=== PATIENT | female | born 1950 | race Caucasian/White ===

== ENCOUNTER 2025-03-25 16:39 | Observation (INO) ==
[2025-03-25 17:13] LABS: Hematocrit (blood only) 44.9 % (37.0-47.0); Hemoglobin 15.3 g/dl (12.0-16.0); Immature Granulocytes # (auto) 0.05 K/uL (0.01-0.20); Immature Granulocytes % (auto) 0.4 %; Mean Corpuscular Hemoglobin 29.7 pg (25.0-34.0); Mean Corpuscular Volume 87.0 fL (80.0-100.0); Platelet Count 274 K/uL (130-400); RDW Standard Deviation 40.6 fL (36.4-46.3); Red Blood Count 5.16 M/uL (4.20-5.40); White Blood Count 12.18 K/ul (4.8-10.8)
[2025-03-25 17:36] LABS: Alanine Aminotransferase 17.0 U/L (7-52); Albumin Globulin Ratio 1.2 (0.9-2); Alkaline Phosphatase 79.0 U/L (34-104); Anion Gap 10.0 (3-11); Bilirubin,Total 0.6 mg/dl (0.2-1.0); Blood Urea Nitrogen 10.0 mg/dl (6-23); Calcium 9.1 mg/dl (8.6-10.3); Carbon Dioxide 24.0 mmol/L (21-32); Chloride 104.0 mmol/L (98-107); Creatinine Clr Calc Pharmacy 51.7 ml/min; Globulin 3.3 gm/dl (2.5-4.0); Glucose 253.0 mg/dl (70-99(Fasting)); Potassium 3.0 mmol/L (3.5-5.1); Sodium 138.0 mmol/L (136-145); Total Protein 7.2 gm/dl (6.0-8.3)
--- NOTE | 2025-03-25 18:34 | Emergency Department Note ---
Impression & Plan Acute neck pain, Abnormal MRI, cervical spine, Leukocytosis, Inflammation of cervical spine region ED Provider Note NAME: SAMANTHA BACON AGE: 74 SEX: Female INFORMANT: Patient ED PROVIDER(S): Reuben Abel MD CHIEF COMPLAINT: Neck pain PLAN: Disposition: Admitted Outpatient prescription management: none Referral: None MEDICAL DECISION MAKING: Patient presented because of atraumatic neck pain. She had no historical points or additional findings on physical examination other than neck stiffness. Patient did not have any headache. IV was established and blood work was obtained. Patient was treated with IV Dilaudid. She did require multiple doses. Her white blood cell count was elevated to 12,000. Patient did have an elevation in ESR and CRP. Chemistries were unremarkable otherwise except for mildly low potassium. Potassium was repleted.. Patient's procalcitonin was normal. Patient underwent CT imaging with contrast and no acute abnormality was appreciated. No abscess is seen. Patient and I discussed MR imaging given the symptoms and findings. MR imaging was performed. There was some delay due to radiology backlog. MR imaging revealed no evidence of abscess however moderate prevertebral soft tissue swelling/fluid extending from the basion to T2. There is moderate edema in the paraspinous muscles. Consultation was placed with orthospine however I was unable to reach anyone here and I did contact [place] [facility]. Discussed the case and reviewed the findings with Dr. Fierro. He noted no need for surgical intervention or transfer. [place] that medicine admission was reasonable. Discussed blood cultures and antibiotics which he thought was reasonable. He did recommend muscle enzymes and a creatine kinase was added. Discussed with patient and she was amenable for admission. IV Zosyn and daptomycin ordered after blood cultures. Consultation was made with the [facility] hospitalist service, Dr. Rob. Patient was evaluated in the ER and admitted for further management. Care/management discussed with: training development manager, hospitalist, neurosurgery Level of care consideration(s): After review of the information above and other included data, I feel the patient requires escalation of care to admission Triage Nursing notes: reviewed and agree them. Vital Signs: reviewed and remarkable for mild hypertension Additional History obtained from: none Chronic Medical/Social Conditions affecting care: none Prior/ Outside/ External records reviewed: none Differential Diagnosis: Cervical strain, fracture, cervical disc disease, lymphadenitis, meningitis, tumor, arterial dissection, thyroiditis, parotitis, mastoiditis, neurologic, cardiovascular, as well as other pathologies. Diagnostics, independently interpreted by me: ECG: none Cardiac Monitoring: Cardiac monitoring ordered by me: The patient was placed on continuous cardiac monitoring and observed. It revealed a normal sinus rhythm at 62 beats per minute without ectopy or evidence of dysrhythmia. Medical decision rules: none Imaging studies: CT and MRI as above. Prevertebral soft tissue swelling and paraspinous edema. HPI: 74 year old Female arrives for evaluation of severe neck pain. This started 4 days ago and is worsening. The patient also notes the following associated symptoms, none. Pain radiates to the head, but no headache or flu symptoms. No trauma. The patient has tried OTC meds for relieving factors. Current pain is rated as 10/10. No prior neck problems Pt denies LOC, headache, fevers, chills, diaphoresis, visual changes, swallowing problems, chest pain, breathing difficulties, nausea, vomiting, abdominal pain, back pain, melena, hematochezia, urinary symptoms, numbness, weakness, lymphadenopathy, rash, or other complaints. PAST MEDICAL HISTORY: See Below, HTN PAST SURGICAL HISTORY: See Below, SOCIAL HISTORY: See Below, HOME MEDICATIONS: See Below ALLERGIES: See Below VITALS: See Below PHYSICAL EXAMINATION: GENERAL: Awake, alert, uncomfortable-appearing, in no distress HENT: Normocephalic, atraumatic. Oropharynx unremarkable. EYES: Normal conjunctiva. Sclera non-icteric. NECK: Inspection normal. Bilateral paraspinal-tender. Stiff, with limited ROM. No masses. RESPIRATORY: Clear to auscultation. No wheezes. No rales. Normal respiratory effort. CARDIAC: Normal rate. Normal rhythm. No murmurs. No rubs. Extremities warm and well perfused. Pulses equal. No JVD. GI: Soft, non-distended. No tenderness to palpation. No rebound or guarding. No masses. RECTAL: Deferred. MUSCULOSKELETAL: Atraumatic. Chest examination reveals no tenderness. The back is symmetrical on inspection without obvious abnormality. There is no CVA tenderness to palpation. No joint edema. LOWER EXTREMITIES: Calves are equal size bilaterally and non-tender. No edema. No discoloration. NEURO: Normal sensorium. No sensory or motor deficits noted. SKIN: No rash or jaundice noted. PROCEDURES: none CRITICAL CARE: I have personally spent 40 minutes of critical care time in the direct management of this patient. This includes bedside care, interpretation of diagnostic studies, and testing, discussion with consultants, patient, and family members, and other required patient management activities. These minutes are in excess of all separately billable procedures. OBSERVATION NOTE: none Past Med/Surg History Problem List (Updated 03/26/25 @ 11:52 by Reuben Abel MD) Inflammation of cervical spine region (Acute) Leukocytosis (Acute) Abnormal MRI, cervical spine (Acute) Acute neck pain (Acute) Social History Smoking Status: Never smoker Preferred Language: Armenian Feels Safe at Home: Yes Allergies Allergies Allergy/AdvReac Type Severity Reaction Status Date / Time No Known Allergies Allergy Unverified 03/25/25 19:26 Home Meds Home Medications Medication Instructions Recorded Confirmed amlodipine 5 mg tablet 5 mg PO DAILY 03/25/25 03/25/25 cholecalciferol (vitamin D3) 25 25 mcg PO DAILY 03/25/25 03/25/25 mcg (1,000 unit) tablet (Vitamin D3) famotidine 20 mg tablet 20 mg PO BID 03/25/25 03/25/25 lisinopril 20 mg tablet 20 mg PO DAILY 03/25/25 03/25/25 meloxicam 7.5 mg tablet 7.5 mg PO DAILY 03/25/25 03/25/25 Results & Data (ED) Vital Signs Vital Signs - 24 hr 03/25/25 16:47 03/25/25 18:02 03/25/25 20:00 Temperature 36.7 C Temperature Source Temporal Artery Scan Pulse Rate 95 H Pulse Rate [Left Finger] 82 72 Respiratory Rate 17 18 16 Respiratory Effort / Characteristics Non-Labored Spontaneous Non-Labored Spontaneous Non-Labored Spontaneous Respiratory Depth Normal Normal Normal Respiratory Pattern Regular Regular Regular Blood Pressure 162/82 H Blood Pressure [Left Arm] 173/81 H 180/85 H Blood Pressure Mean 108 Blood Pressure Mean [Left Arm] 111 116 Blood Pressure Position Semi-fowlers Blood Pressure Position [Left Arm] Sitting Sitting Pulse Oximetry 94 96 92 Oxygen Delivery Method Room Air Room Air Room Air Sepsis Recent Fever Within 48 Hours No Sepsis New/Unexplained Change in Mental Status N/A Sepsis Action Taken by Nursing No Action Required 03/25/25 22:15 03/25/25 23:00 03/25/25 23:00 Temperature Temperature Source Pulse Rate Pulse Rate [Left Finger] 81 71 Respiratory Rate 14 18 Respiratory Effort / Characteristics Non-Labored Spontaneous Non-Labored Spontaneous Respiratory Depth Normal Normal Respiratory Pattern Regular Regular Blood Pressure Blood Pressure [Left Arm] 160/77 H 150/80 H Blood Pressure Mean Blood Pressure Mean [Left Arm] 104 103 Blood Pressure Position Blood Pressure Position [Left Arm] Lying Pulse Oximetry 95 97 Oxygen Delivery Method Room Air Room Air Sepsis Recent Fever Within 48 Hours Sepsis New/Unexplained Change in Mental Status Sepsis Action Taken by Nursing 03/26/25 01:00 03/26/25 03:33 Temperature Temperature Source Pulse Rate Pulse Rate [Left Finger] 84 68 Respiratory Rate 18 18 Respiratory Effort / Characteristics Non-Labored Spontaneous Respiratory Depth Normal Respiratory Pattern Regular Blood Pressure Blood Pressure [Left Arm] 152/97 H 148/76 H Blood Pressure Mean Blood Pressure Mean [Left Arm] 115 100 Blood Pressure Position Blood Pressure Position [Left Arm] Lying Lying Pulse Oximetry 96 94 Oxygen Delivery Method Room Air Room Air Sepsis Recent Fever Within 48 Hours Sepsis New/Unexplained Change in Mental Status Sepsis Action Taken by Nursing Laboratory Data 03/25/25 16:55 03/25/25 16:55 Lab Results 03/25/25 03/25/25 Range/Units 16:55 18:35 WBC 12.18 H (4.8-10.8) K/ul RBC 5.16 (4.20-5.40) M/uL Hgb 15.3 (12.0-16.0) g/dl Hct 44.9 (37.0-47.0) % MCV 87.0 (80.0-100.0) fL MCH 29.7 (25.0-34.0) pg MCHC 34.1 (32.0-36.0) g/dL RDW Std Deviation 40.6 (36.4-46.3) fL RDW Coeff of Demetrice 12.8 (11.5-14.5) % Plt Count 274 (130-400) K/uL MPV 9.1 L (9.4-12.4) fL Immature Gran % (Auto) 0.4 % Neut % (Auto) 80.9 % Lymph % (Auto) 10.5 % [place] % (Auto) 8.0 % Eos % (Auto) 0.0 % Baso % (Auto) 0.2 % Neut # (Auto) 9.85 H (1.40-6.50) K/uL Lymph # (Auto) 1.28 (1.20-3.40) K/uL [place] # (Auto) 0.97 H (0.11-0.59) K/uL Eos # (Auto) 0.00 (0.00-0.50) K/uL Baso # (Auto) 0.03 (0.00-0.20) K/uL Immature Gran # (Auto) 0.05 (0.01-0.20) K/uL ESR 34 H (0-30) mm/hr Sodium 138 (136-145) mmol/L Potassium 3.0 L (3.5-5.1) mmol/L Chloride 104 (98-107) mmol/L Carbon Dioxide 24 (21-32) mmol/L Anion Gap 10 (3-11) BUN 10 (6-23) mg/dl Creatinine 0.92 (0.6-1.2) mg/dl Est Cr Clr Drug Dosing 51.7 ml/min eGFR 66.16 BUN/Creatinine Ratio 10.9 (10-20) Glucose 253 H (70-99(Fasting)) mg/dl Calcium 9.1 (8.6-10.3) mg/dl Total Bilirubin 0.6 (0.2-1.0) mg/dl AST 19 (13-39) U/L ALT 17 (7-52) U/L Alkaline Phosphatase 79 (34-104) U/L Total Creatine Kinase 47 (26-192) U/L C-Reactive Protein 7.69 H (0-0.5) mg/dl Total Protein 7.2 (6.0-8.3) gm/dl Albumin 3.9 (3.4-5.0) gm/dl Globulin 3.3 (2.5-4.0) gm/dl Albumin/Globulin Ratio 1.2 (0.9-2) Procalcitonin 0.07 (0-0.5) ng/ml Lyme Disease Screen Negative (Negative) Administered Medications Hydromorphone HCl (Hydromorphone Inj 0.5 Mg/0.5 Ml Syr) 0.5 mg IV Q6H PRN PRN Reason: Severe Pain (Scale 7, 8, 9,10) Stop: 04/09/25 09:56 Last Admin: 03/26/25 11:33 Dose: 0.5 mg Documented By: LIBERTAD Discontinued Medications Gadobutrol (Gadobutrol 65ml Vial) 6 ml IV ONCE ONE Stop: 03/25/25 21:31 Last Admin: 03/25/25 21:31 Dose: 6 ml Documented By: SEMAJ Hydromorphone HCl (Hydromorphone Inj 0.5 Mg/0.5 Ml Syr) 0.25 mg IV Q15M PRN PRN Reason: Pain Stop: 04/08/25 18:33 Last Admin: 03/26/25 03:28 Dose: 0.25 mg Documented By: Admin: 03/25/25 22:20 Dose: 0.25 mg Documented By: Admin: 03/25/25 21:02 Dose: 0.25 mg Documented By: Admin: 03/25/25 18:47 Dose: 0.25 mg Documented By: SAMANTA Potassium Chloride (K Sudhakar / Wtr) 10 meq in 100 mls @ 100 mls/hr IV ONE ONE Stop: 03/25/25 20:04 Last Infusion: 03/25/25 20:58 Dose: Infused Documented By: Admin: 03/25/25 19:26 Dose: 100 mls/hr Documented By: SAMANTA Piperacillin Sod/Tazobactam Sod (Zosyn) 4.5 gm in 100 mls @ 200 mls/hr IV NOW ONE; Protocol Stop: 03/26/25 03:13 Last Infusion: 03/26/25 05:28 Dose: Infused Documented By: Admin: 03/26/25 03:30 Dose: 200 mls/hr Documented By: Daptomycin 425 mg/ Syringe 8.5 mls @ 4.25 mls/min IV NOW ONE; Protocol Stop: 03/26/25 02:58 Last Admin: 03/26/25 05:29 Dose: 4.25 mls/min Documented By: Potassium Chloride (K Sudhakar / Wtr) 10 meq in 100 mls @ 100 mls/hr IV Q1H RITO Stop: 03/26/25 08:14 Last Infusion: 03/26/25 08:20 Dose: Infused Documented By: Admin: 03/26/25 07:18 Dose: 100 mls/hr Documented By: Infusion: 03/26/25 07:18 Dose: Infused Documented By: Admin: 03/26/25 06:18 Dose: 100 mls/hr Documented By: Ioversol (Optiray 320 100ml) 93 ml IV ONCE ONE Stop: 03/25/25 19:00 Last Admin: 03/25/25 18:59 Dose: 93 ml Documented By: JEROMY Ondansetron HCl (Ondansetron Inj 2 Mg/Ml 2 Ml Vial) 4 mg IV NOW STA Stop: 03/25/25 18:35 Last Admin: 03/25/25 18:46 Dose: 4 mg Documented By: SAMANTA Ondansetron HCl (Ondansetron Inj 2 Mg/Ml 2 Ml Vial) 4 mg IV NOW STA Stop: 03/25/25 22:44 Last Admin: 03/25/25 23:01 Dose: 4 mg Documented By: Potassium Chloride (Potassium Chloride Crtab 20 Meq Tabcr) 40 meq PO NOW STA Stop: 03/26/25 06:02 Last Admin: 03/26/25 06:18 Dose: 40 meq Documented By: Imaging Data Radiologist's Impression: Cervical Spine MRI 03/25/25 21:00 Exam(s): MRI C SPINE IV Amt: 6ml gadavist EXAM: MR Cervical Spine With Intravenous Contrast CLINICAL HISTORY: Reason for exam: severe neck pain, elevated WBC, ESR, CRP. TECHNIQUE: Magnetic resonance images of the cervical spine with intravenous contrast in multiple planes. CONTRAST: Patient received 6ml gadavist of IV contrast COMPARISON: Prior CT scan of the cervical spine from March 25, 2025. FINDINGS: This study is limited secondary to motion artifact. Vertebrae: There are 7 cervical type vertebral bodies with a mild generalized curved to the left and straightening normal cervical lordosis. There is a mild grade 1 anterolisthesis of C3 on C4 measuring 2 mm, retrolisthesis of C4 on C5 measuring 2 mm prosthesis of C5 on C6 measuring 2 mm. There is normal vertebral body height. The bone marrow signal is heterogeneous with reactive endplate changes. No acute fracture. Spinal cord: The cord is normal size, shape and signal characteristics. The craniocervical junction is normal without evidence of Chiari malformation. No abnormal enhancement. Soft tissues: There is moderate prevertebral soft tissue swelling/fluid extending from the basion to T2. There is moderate edema in the paraspinous muscles. IMPRESSION: Moderate prevertebral soft tissue swelling/fluid extending from the basion through T2 which may be of infectious, post traumatic or inflammatory etiologies. No definite evidence of osteomyelitis. No evidence of epidural abscess. Electronically signed by: Gina Brennan MD 03/26/25 01:08 AM Discharge Plan Visit Data Chief Complaint: Neck Injury/Pain Stated Complaint: STIFF NECK ED Provider: Reuben Abel Discharge Problem: Acute neck pain, Abnormal MRI, cervical spine, Leukocytosis, Inflammation of cervical spine region Patient Disposition: Admitted As Inpatient Condition: Fair Discharge Instructions Interventions: ED Discharge Assessment Last Done: 03/26/25 10:20
[2025-03-25] MEDS: ONDANSETRON INJ 2 MG/ML 2 ML VIAL IV STA ×2 (18:46→23:01)
[2025-03-25] MEDS: HYDROmorphone INJ 0.5 MG/0.5 ML SYR IV PRN (18:47)
[2025-03-25] MEDS: OPTIRAY 320 100ml IV ONE (18:59)
[2025-03-25 19:10] LABS: Procalcitonin 0.07 ng/ml (0-0.5)
[2025-03-25] MEDS: POTASSIUM CHLORIDE / WTR 10 MEQ/100 ML PLCT IV ONE (19:26)
[2025-03-25 19:35] LABS: Lyme Screen Rflx Confirmation Negative (Negative)
--- NOTE | 2025-03-25 20:18 | CT Scan Report ---
EXAM: CT cervical spine with contrast CLINICAL HISTORY: Severe midline neck pain, elevated white blood cell TECHNIQUE: Contiguous axial images were obtained through the cervical spine without the use of intravenous contrast. Sagittal and coronal reformations are supplied. PRIORS: None FINDINGS: Moderate osseous demineralization noted with lordotic straightening. No acute fracture or facet dislocation. Moderate facet hypertrophic changes at all levels. Allowing for technique, the thyroid enhances normally. No soft tissue edema or paraspinal enhancement. Trachea is patent. Esophagus lumen contains small amount of gas. Vasculature unremarkable. No adenopathy identified. No retropharyngeal abscess or fluid. IMPRESSION: No CT evidence of an acute cervical abnormality. If symptoms persist, MRI could be considered. Electronically signed by Massiel Bermudez 03-25-2025 8:18 PM
[2025-03-25] MEDS: GADOBUTROL 65ML VIAL IV ONE (21:31)
--- NOTE | 2025-03-26 01:09 | Magnetic Resonance Report ---
Exam(s): MRI C SPINE IV Amt: 6ml gadavist EXAM: MR Cervical Spine With Intravenous Contrast CLINICAL HISTORY: Reason for exam: severe neck pain, elevated WBC, ESR, CRP. TECHNIQUE: Magnetic resonance images of the cervical spine with intravenous contrast in multiple planes. CONTRAST: Patient received 6ml gadavist of IV contrast COMPARISON: Prior CT scan of the cervical spine from March 25, 2025. FINDINGS: This study is limited secondary to motion artifact. Vertebrae: There are 7 cervical type vertebral bodies with a mild generalized curved to the left and straightening normal cervical lordosis. There is a mild grade 1 anterolisthesis of C3 on C4 measuring 2 mm, retrolisthesis of C4 on C5 measuring 2 mm prosthesis of C5 on C6 measuring 2 mm. There is normal vertebral body height. The bone marrow signal is heterogeneous with reactive endplate changes. No acute fracture. Spinal cord: The cord is normal size, shape and signal characteristics. The craniocervical junction is normal without evidence of Chiari malformation. No abnormal enhancement. Soft tissues: There is moderate prevertebral soft tissue swelling/fluid extending from the basion to T2. There is moderate edema in the paraspinous muscles. IMPRESSION: Moderate prevertebral soft tissue swelling/fluid extending from the basion through T2 which may be of infectious, post traumatic or inflammatory etiologies. No definite evidence of osteomyelitis. No evidence of epidural abscess. Electronically signed by: Gina Brennan MD 03/26/25 01:08 AM
[2025-03-26 03:18] LABS: Creatine Kinase 47.0 U/L (26-192)
[2025-03-26] MEDS: PIPERACILLIN/TAZOBACTAM 4.5 GM/100 ML BAG IV ONE (03:30)
[2025-03-26] MEDS: DAPTOmycin 425 MG in SYRINGE 0 ML IV ONE (05:29)
--- NOTE | 2025-03-26 06:09 | History & Physical Report ---
Date of Service March 26, 2025 Assessment & Plan (1) Acute neck pain: Plan: 74-year-old female with past medical history significant for hypertension and GERD comes because of severe neck pain and stiffness started since last Saturday. Saturday she was taking her gravel when suddenly noticed neck pain. Did not injure her neck. No fall. And has been very stiff. Denies any fevers. The pain is radiating to head. No blurred visions. No runny nose or sore throat. No cough. No earaches. No chest pain. No difficulty swallowing. No shortness of breath. No nausea. No abdominal pain. Normal bowel and bladder movements. Ambulation okay. Denies any weakness in the upper extremities. In the ER a cervical MRI scan showed moderate perivertebral soft tissue swelling/fluid extending from the basion throughT2 which could be infectious, posttraumatic or inflammatory etiologies. No definitive evidence of osteomyelitis. No evidence of epidural abscess. ER talked with neurosurgery at [facility] who recommended medical management and no intervention planned. Received Zosyn and Dapto in the ER so far. Received pain medication . Patient currently able to move the neck somewhat better but still stiff. Hemodynamics are okay. Acute neck pain And stiffness Started last Saturday. No injuries. No fevers. Cervical CT scan was okay Cervical MRI scan with IV contrast showed moderate perivertebral soft tissue swelling/fluid extending from the basion throughT2 which could be infectious, posttraumatic or inflammatory etiologies. No definitive evidence of osteomyelitis or epidural abscess. ER talked with neurosurgery at [facility] and no intervention recommended this time and was recommended medical management and was okay for cultures and IV antibiotics. Received IV Dapto and Zosyn which will be continued. Will follow cultures. Pa in control. Orthospine consult in AM. Keep n.p.o. for now. IV fluids. Hypertension. On amlodipine and lisinopril Will monitor GERD On famotidine DVT prophylaxis SCDs for now Disposition Medical floor Full code. History of Present Illness Chief Complaint: Severe neck pain and stiffness Primary Care Provider: Vanessa Lucas 74-year-old female with past medical history significant for hypertension and GERD comes because of severe neck pain and stiffness started since last Saturday. Saturday she was taking her gravel when suddenly noticed neck pain. Did not injure her neck. No fall. And has been very stiff. Denies any fevers. The pain is radiating to head. No blurred visions. No runny nose or sore throat. No cough. No earaches. No chest pain. No difficulty swallowing. No shortness of breath. No nausea. No abdominal pain. Normal bowel and bladder movements. Ambulation okay. Denies any weakness in the upper extremities. In the ER a cervical MRI scan showed moderate perivertebral soft tissue swelling/fluid extending from the basion throughT2 which could be infectious, posttraumatic or inflammatory etiologies. No definitive evidence of osteomyelitis. No evidence of epidural abscess. ER talked with neurosurgery at [facility] who recommended medical management and no intervention planned. Received Zosyn and Dapto in the ER so far. Received pain medication . Patient currently able to move the neck somewhat better but still stiff. Hemodynamics are okay. Past medical history. As mentioned above. Past surgical history. Partial hysterectomy. Cholecystectomy. Cataracts. Breast biopsy x 2. Social history. Denies smoking. No alcohol use. No drug use. Family history. Denies any family history. Allergies Allergy/AdvReac Type Severity Reaction Status Date / Time No Known Allergies Allergy Unverified 03/25/25 19:26 Home Medications Medication Instructions Recorded Confirmed Type amlodipine 5 mg tablet 5 mg PO DAILY 03/25/25 03/25/25 History cholecalciferol (vitamin D3) 25 25 mcg PO DAILY 03/25/25 03/25/25 History mcg (1,000 unit) tablet (Vitamin D3) famotidine 20 mg tablet 20 mg PO BID 03/25/25 03/25/25 History lisinopril 20 mg tablet 20 mg PO DAILY 03/25/25 03/25/25 History meloxicam 7.5 mg tablet 7.5 mg PO DAILY 03/25/25 03/25/25 History Past Med/Surg History Problem List (Updated 03/25/25 @ 18:34 by Reuben Abel MD) Acute neck pain (Acute) Social History Smoking Status: Never smoker Preferred Language: Serbian Feels Safe at Home: Yes Review of Systems Review of Systems: All systems reviewed & are unremarkable except as noted in HPI & below Physical Exam Physical Exam: General- adult Head- atraumatic Eyes- PERRL ENT- oropharynx clear Neck- stiff and painful movements. Lungs- clear to auscultation no wheezing or crackles Heart- regular rate and rhythm; no murmur, no gallop. Abdomen- normal bowel sounds, soft, nontender, no distension. Extremities- no pretibial edema, no erythema seen Neuro- alert, oriented PERRL, no facial palsy; no dysarthria; motor 5/5 bilaterally; sensations intact Results & Data Results & Data Vital Signs (Past 12 Hours) Vital Signs Pulse Resp BP Pulse Ox O2 Del Method 03/26/25 03:33 68 18 148/76 H 94 Room Air 03/26/25 01:00 84 18 152/97 H 96 Room Air 03/25/25 23:00 150/80 H 03/25/25 23:00 71 18 97 Room Air 03/25/25 22:15 81 14 160/77 H 95 Room Air 03/25/25 20:00 72 16 180/85 H 92 Room Air Diagnostic Findings Laboratory Results WBC 12.18 K/ul (4.8-10.8) H 03/25/25 16:55 RBC 5.16 M/uL (4.20-5.40) 03/25/25 16:55 Hgb 15.3 g/dl (12.0-16.0) 03/25/25 16:55 Hct 44.9 % (37.0-47.0) 03/25/25 16:55 MCV 87.0 fL (80.0-100.0) 03/25/25 16:55 MCH 29.7 pg (25.0-34.0) 03/25/25 16:55 MCHC 34.1 g/dL (32.0-36.0) 03/25/25 16:55 RDW Std Deviation 40.6 fL (36.4-46.3) 03/25/25 16:55 RDW Coeff of Demetrice 12.8 % (11.5-14.5) 03/25/25 16:55 Plt Count 274 K/uL (130-400) 03/25/25 16:55 MPV 9.1 fL (9.4-12.4) L 03/25/25 16:55 Immature Gran % (Auto) 0.4 % 03/25/25 16:55 Neut % (Auto) 80.9 % 03/25/25 16:55 Lymph % (Auto) 10.5 % 03/25/25 16:55 Moody % (Auto) 8.0 % 03/25/25 16:55 Eos % (Auto) 0.0 % 03/25/25 16:55 Baso % (Auto) 0.2 % 03/25/25 16:55 Neut # (Auto) 9.85 K/uL (1.40-6.50) H 03/25/25 16:55 Lymph # (Auto) 1.28 K/uL (1.20-3.40) 03/25/25 16:55 Moody # (Auto) 0.97 K/uL (0.11-0.59) H 03/25/25 16:55 Eos # (Auto) 0.00 K/uL (0.00-0.50) 03/25/25 16:55 Baso # (Auto) 0.03 K/uL (0.00-0.20) 03/25/25 16:55 Immature Gran # (Auto) 0.05 K/uL (0.01-0.20) 03/25/25 16:55 ESR 34 mm/hr (0-30) H 03/25/25 16:55 Sodium 138 mmol/L (136-145) 03/25/25 16:55 Potassium 3.0 mmol/L (3.5-5.1) L 03/25/25 16:55 Chloride 104 mmol/L (98-107) 03/25/25 16:55 Carbon Dioxide 24 mmol/L (21-32) 03/25/25 16:55 Anion Gap 10 (3-11) 03/25/25 16:55 BUN 10 mg/dl (6-23) 03/25/25 16:55 Creatinine 0.92 mg/dl (0.6-1.2) 03/25/25 16:55 Est Cr Clr Drug Dosing 51.7 ml/min 03/25/25 16:55 eGFR 66.16 03/25/25 16:55 BUN/Creatinine Ratio 10.9 (10-20) 03/25/25 16:55 Glucose 253 mg/dl (70-99(Fasting)) H 03/25/25 16:55 Calcium 9.1 mg/dl (8.6-10.3) 03/25/25 16:55 Total Bilirubin 0.6 mg/dl (0.2-1.0) 03/25/25 16:55 AST 19 U/L (13-39) 03/25/25 16:55 ALT 17 U/L (7-52) 03/25/25 16:55 Alkaline Phosphatase 79 U/L (34-104) 03/25/25 16:55 Total Creatine Kinase 47 U/L (26-192) 03/25/25 16:55 C-Reactive Protein 7.69 mg/dl (0-0.5) H 03/25/25 16:55 Total Protein 7.2 gm/dl (6.0-8.3) 03/25/25 16:55 Albumin 3.9 gm/dl (3.4-5.0) 03/25/25 16:55 Globulin 3.3 gm/dl (2.5-4.0) 03/25/25 16:55 Albumin/Globulin Ratio 1.2 (0.9-2) 03/25/25 16:55 Procalcitonin 0.07 ng/ml (0-0.5) 03/25/25 18:35 Lyme Disease Screen Negative (Negative) 03/25/25 18:[address] 03/25/25 18:35 EXAM: CT cervical spine with contrast CLINICAL HISTORY: Severe midline neck pain, elevated white blood cell TECHNIQUE: Contiguous axial images were obtained through the cervical spine without the use of intravenous contrast. Sagittal and coronal reformations are supplied. PRIORS: None FINDINGS: Moderate osseous demineralization noted with lordotic straightening. No acute fracture or facet dislocation. Moderate facet hypertrophic changes at all levels. Allowing for technique, the thyroid enhances normally. No soft tissue edema or paraspinal enhancement. Trachea is patent. Esophagus lumen contains small amount of gas. Vasculature unremarkable. No adenopathy identified. No retropharyngeal abscess or fluid. IMPRESSION: No CT evidence of an acute cervical abnormality. If symptoms persist, MRI could be considered. Electronically signed by Massiel Bermudez 03-25-2025 8:18 PM Cervical Spine MRI 03/25/25 21:00 Exam(s): MRI C SPINE IV Amt: 6ml gadavist EXAM: MR Cervical Spine With Intravenous Contrast CLINICAL HISTORY: Reason for exam: severe neck pain, elevated WBC, ESR, CRP. TECHNIQUE: Magnetic resonance images of the cervical spine with intravenous contrast in multiple planes. CONTRAST: Patient received 6ml gadavist of IV contrast COMPARISON: Prior CT scan of the cervical spine from March 25, 2025. FINDINGS: This study is limited secondary to motion artifact. Vertebrae: There are 7 cervical type vertebral bodies with a mild generalized curved to the left and straightening normal cervical lordosis. There is a mild grade 1 anterolisthesis of C3 on C4 measuring 2 mm, retrolisthesis of C4 on C5 measuring 2 mm prosthesis of C5 on C6 measuring 2 mm. There is normal vertebral body height. The bone marrow signal is heterogeneous with reactive endplate changes. No acute fracture. Spinal cord: The cord is normal size, shape and signal characteristics. The craniocervical junction is normal without evidence of Chiari malformation. No abnormal enhancement. Soft tissues: There is moderate prevertebral soft tissue swelling/fluid extending from the basion to T2. There is moderate edema in the paraspinous muscles. IMPRESSION: Moderate prevertebral soft tissue swelling/fluid extending from the basion through T2 which may be of infectious, post traumatic or inflammatory etiologies. No definite evidence of osteomyelitis. No evidence of epidural abscess. Electronically signed by: Gina Brennan MD 03/26/25 01:08 AM Code Status & VTE Plan VTE Prophylaxis Plan VTE Prophylaxis will be ordered: Yes
[2025-03-26] MEDS: POTASSIUM CHLORIDE / WTR 10 MEQ/100 ML PLCT IV SCH (06:18)
[2025-03-26] MEDS: POTASSIUM CHLORIDE CRTAB 20 MEQ TABCR PO STA (06:18)
[2025-03-26] MEDS ORDERED: CARBOHYDRATES FOR HYPOGLYCEMIA PO PRN (09:57)
[2025-03-26] MEDS ORDERED: DEXTROSE 50% 50 ML SYRINGE IV PRN (09:57)
[2025-03-26] MEDS ORDERED: POLYETHYLENE (MIRALAX) 17 GM PACK PO PRN (09:57)
[2025-03-26] MEDS ORDERED: GLUCOSE 40% GEL 15 GM TUBE PO PRN (09:57)
[2025-03-26] MEDS ORDERED: ACETAMINOPHEN 1,000 MG/100 ML VIAL IV PRN (09:57)
[2025-03-26] MEDS ORDERED: GLUCAGON FOR INJ 1 MG VIAL SQ PRN (09:57)
[2025-03-26] MEDS ORDERED: HYDROmorphone INJ 0.5 MG/0.5 ML SYR IV PRN (09:57)
[2025-03-26] MEDS ORDERED: GLUCOSE 10 TAB/TUBE PO PRN (09:57)
[2025-03-26] MEDS ORDERED: Nursing to Pharmacy Communication SCH (11:00)
[2025-03-26] MEDS: HYDROmorphone INJ 0.5 MG/0.5 ML SYR IV PRN (11:33)
[2025-03-26] MEDS: SODIUM CHLORIDE 0.9% 1,000 ML IV SCH (11:54)
[2025-03-26] MEDS: PIPERACILLIN/TAZOBACTAM 4.5 GM/100 ML BAG IV SCH (11:55)
[2025-03-26] MEDS: CHOLECALCIFEROL 25 MCG (1000 UNITS) TAB PO SCH (11:55)
[2025-03-26] MEDS: FAMOTIDINE 20 MG TAB PO SCH (11:57)
[2025-03-26] MEDS: INSULIN ASPART PER UNIT CHARGE SC SCH (12:02)
[2025-03-26 12:04] LABS: Hemoglobin A1C 7.4 % (4.5-5.6)
[2025-03-26 12:12] LABS: Potassium 3.6 mmol/L (3.5-5.1)
[2025-03-26 12:13] LABS: Anion Gap 8.0 (3-11); Blood Urea Nitrogen 9.0 mg/dl (6-23); Calcium 8.4 mg/dl (8.6-10.3); Carbon Dioxide 24.0 mmol/L (21-32); Chloride 109.0 mmol/L (98-107); Creatinine Clr Calc Pharmacy 63.5 ml/min; Glucose 168.0 mg/dl (70-99(Fasting)); Magnesium 1.9 mg/dl (1.7-2.4); Sodium 141.0 mmol/L (136-145)
[2025-03-26 14:12] VITALS: RESP 16
--- NOTE | 2025-03-26 17:30 | Communication Note ---
Patient admitted with acute neck pain, found to have inflammation of cervical spine concerning for infection or other acute process. MR cervical spine reveals the inflammation. Consideration for acute calcific tendinitis, prevertebral infection, discitis, less likely osteomyelitis, cervical spine malignancy. Ortho spine consulted, appreciate recs. Monitor neuro status. Follow up blood cultures. Treat cervical spine pain as needed. Check ESR and CRP. Date of Service: March 26, 2025
[2025-03-26] MEDS: ONDANSETRON INJ 2 MG/ML 2 ML VIAL IV PRN (19:59)
[2025-03-26] MEDS: PROMETHAZINE 12.5 MG/50.5 ML BAG IV STA (21:34)
[2025-03-27] MEDS: DAPTOmycin 425 MG in SYRINGE 0 ML IV SCH (02:45)
[2025-03-27 06:42] LABS: Hematocrit (blood only) 40.2 % (37.0-47.0); Hemoglobin 13.6 g/dl (12.0-16.0); Immature Granulocytes # (auto) 0.03 K/uL (0.01-0.20); Immature Granulocytes % (auto) 0.3 %; Mean Corpuscular Hemoglobin 30.0 pg (25.0-34.0); Mean Corpuscular Volume 88.7 fL (80.0-100.0); Platelet Count 253 K/uL (130-400); RDW Standard Deviation 42.0 fL (36.4-46.3); Red Blood Count 4.53 M/uL (4.20-5.40); White Blood Count 9.68 K/ul (4.8-10.8)
[2025-03-27 06:52] LABS: Anion Gap 6.0 (3-11); Blood Urea Nitrogen 14.0 mg/dl (6-23); Calcium 8.5 mg/dl (8.6-10.3); Carbon Dioxide 28.0 mmol/L (21-32); Chloride 108.0 mmol/L (98-107); Creatinine Clr Calc Pharmacy 49.6 ml/min; Glucose 154.0 mg/dl (70-99(Fasting)); Magnesium 1.9 mg/dl (1.7-2.4); Potassium 3.8 mmol/L (3.5-5.1); Sodium 142.0 mmol/L (136-145)
[2025-03-27 07:29] VITALS: BP 155/74; PULSE 61; TEMP 98.4; O2SAT 91
--- NOTE | 2025-03-27 10:33 | Orthopedic Consultation ---
Date of Consultation March 27, 2025 Assessment & Plan (1) Inflammation of cervical spine region: MRI of the cervical spine available for review does demonstrate significant prevertebral edema. I do not appreciate fracture. She appears to be asymptomatic from a swallowing standpoint. She tolerated the practice without difficulty. She states her pain is much improved after her stay last night. This point would recommend continued observation. She should lift no more than 5 pounds. I do not see the need for any cervical immobilization at this point. History of Present Illness Reason for Consultation: Acute neck pain Attending Physician: Rodri Cardoza MD History of Present Illness This very pleasant 74-year-old female that presents with a worsening history of neck pain over the course of the week. She had been moving gravel and pulling a salas from her yard. Did not note any significant trauma at that time. However over the course of several days she began experiencing significant posterior cervical neck pain. She denies any arm numbness or tingling denies any balance disturbances. Denies any gross weakness. Denies any swallowing issues or changes in her voice. Allergies Allergy/AdvReac Type Severity Reaction Status Date / Time No Known Allergies Allergy Unverified 03/25/25 19:26 Home Medications Medication Instructions Recorded Confirmed Type amlodipine 5 mg tablet 5 mg PO DAILY 03/25/25 03/25/25 History cholecalciferol (vitamin D3) 25 25 mcg PO DAILY 03/25/25 03/25/25 History mcg (1,000 unit) tablet (Vitamin D3) famotidine 20 mg tablet 20 mg PO BID 03/25/25 03/25/25 History lisinopril 20 mg tablet 20 mg PO DAILY 03/25/25 03/25/25 History meloxicam 7.5 mg tablet 7.5 mg PO DAILY 03/25/25 03/25/25 History Patient History Social History Smoking Status: Never smoker Second Hand Exposure: No; Hx Alcohol Use: No Hx Substance Use: No Preferred Language: Moroccan Communication Ability: Effective Logging [employer] Foreman Required: No Beliefs That Will Affect Care: None Current Living Situation: Spouse Other Information That Helps Us Care for You: No Feels Safe at Home: Yes Safety Concerns: Feels Safe At This Time Assistive Devices: None Physical Exam Physical Exam: On exam patient is up and ambulating about her room. She has some tenderness to palpation of the posterior cervical musculature. She has excellent cervical range of motion. She has excellent strength testing. She ambulates with a narrow steady gait. Results & Data Vital Signs (Past 12 Hours) Vital Signs Temp Pulse Resp BP Pulse Ox O2 Del Method 03/27/25 07:28 36.9 C 61 16 155/74 H 91 Room Air
--- NOTE | 2025-03-27 12:34 | Discharge Summary ---
Discharge Summary Date of Service March 27, 2025 Principal Dx & Hospital Course #1 = Principal Diagnosis (1) Acute neck pain: 74-year-old female with past medical history significant for hypertension and GERD comes because of severe neck pain and stiffness started since last Saturday. Saturday she was taking her gravel when suddenly noticed neck pain. Did not injure her neck. No fall. And has been very stiff. Denies any fevers. The pain is radiating to head. No blurred visions. No runny nose or sore throat. No cough. No earaches. No chest pain. No difficulty swallowing. No shortness of breath. No nausea. No abdominal pain. Normal bowel and bladder movements. Ambulation okay. Denies any weakness in the upper extremities. In the ER a cervical MRI scan showed moderate perivertebral soft tissue swelling/fluid extending from the basion throughT2 which could be infectious, posttraumatic or inflammatory etiologies. No definitive evidence of osteomyelitis. No evidence of epidural abscess. ER talked with neurosurgery at [facility] who recommended medical management and no intervention planned. Received Zosyn and Dapto in the ER so far. Received pain medication . Patient currently able to move the neck somewhat better but still stiff. Hemodynamics are okay. Acute neck pain And stiffness Started last Saturday. No injuries. No fevers. Cervical CT scan was okay Cervical MRI scan with IV contrast showed moderate perivertebral soft tissue swelling/fluid extending from the basion throughT2 which could be infectious, posttraumatic or inflammatory etiologies. No definitive evidence of osteomyelitis or epidural abscess. ER talked with neurosurgery at [facility] and no intervention recommended this time and was recommended medical management and was okay for cultures and IV antibiotics. Received IV Dapto and Zosyn which will be continued. Will follow cultures. Pain control. Orthospine consult in AM. Keep n.p.o. for now. IV fluids. Hypertension. On amlodipine and lisinopril Will monitor GERD On famotidine DVT prophylaxis SCDs for now Disposition Medical floor Full code. Notes For Next Care Provider 74-year-old female with past medical history significant for hypertension and GERD comes because of severe neck pain and stiffness started since last Saturday. In the ED, found to have severe prevertebral edema, admitted to medicine. On medicine, discussed with [facility], recommended observation. Ortho spine consulted, recommended rest and decadron. Pain improved as did mobility. On 03/27/2025 medically stable for discharge home per ortho spine and medicine. To do: [ ] f/u with ortho spine in 1-2 months [ ] finish decadron course Medication Changes From Visit -see below Admission HPI Per Admitting Provider 74-year-old female with past medical history significant for hypertension and GERD comes because of severe neck pain and stiffness started since last Saturday. Saturday she was taking her gravel when suddenly noticed neck pain. Did not injure her neck. No fall. And has been very stiff. Denies any fevers. The pain is radiating to head. No blurred visions. No runny nose or sore throat. No cough. No earaches. No chest pain. No difficulty swallowing. No shortness of breath. No nausea. No abdominal pain. Normal bowel and bladder movements. Ambulation okay. Denies any weakness in the upper extremities. In the ER a cervical MRI scan showed moderate perivertebral soft tissue swelling/fluid extending from the basion throughT2 which could be infectious, posttraumatic or inflammatory etiologies. No definitive evidence of osteomyelitis. No evidence of epidural abscess. ER talked with neurosurgery at [facility] who recommended medical management and no intervention planned. Received Zosyn and Dapto in the ER so far. Received pain medication . Patient currently able to move the neck somewhat better but still stiff. Hemodynamics are okay. Past medical history. As mentioned above. Past surgical history. Partial hysterectomy. Cholecystectomy. Cataracts. Manju ast biopsy x 2. Social history. Denies smoking. No alcohol use. No drug use. Family history. Denies any family history. Discharge Exam Gen: A&O 3 NAD HEENT: NCAT, EOMI, not icteric. External ears normal. No rhinorrhea. Moist mucous membranes. Neck: Supple, full range of motion, no observable masses, No meningeal sign. Mild tenderness to palpation Lungs: No Respiratory distress. CV: RRR, no edema. Abdomen: Soft, nondistended, No rebound tenderness. MSK: No joint swelling, no redness. Skin: No rashes, petechiae, lesions. Normal color per patient. Neuro: Normal Gait, Grossly intact. Psych: Appropriate for situation. Updated Medication List Medication Instructions Recorded Confirmed Type amlodipine 5 mg tablet 5 mg PO DAILY 03/25/25 03/25/25 History cholecalciferol (vitamin D3) 25 25 mcg PO DAILY 03/25/25 03/25/25 History mcg (1,000 unit) tablet (Vitamin D3) famotidine 20 mg tablet 20 mg PO BID 03/25/25 03/25/25 History lisinopril 20 mg tablet 20 mg PO DAILY 03/25/25 03/25/25 History meloxicam 7.5 mg tablet 7.5 mg PO DAILY 03/25/25 03/25/25 History dexamethasone 4 mg tablet 4 mg PO DAILY 5 days #5 tabs 03/27/25 Rx diclofenac sodium 1 % topical gel 2 g topical QID neck pain #100 03/27/25 Rx (Arthritis Pain (diclofenac)) grams oxycodone 5 mg tablet 5 mg PO Q8H PRN pain #14 tabs 03/27/25 Rx Hospital Stay Data Consultations 03/26/25 03:05 ED Decision to Admit Stat 03/26/25 09:57 Consult Orthopedic Spine Surgery Routine Diagnostic Imagining Performed 03/25/25 18:35 CT cervical spine w con Stat 03/25/25 21:00 MR cervical spine wo/w con Stat Pending Results Patient Have Any Pending Studies at Discharge: No Discharge Instructions Given to Patient (Per Discharging Provider) 1. Please limit lifting and upper body physical activity for next 4 weeks. 2. Please follow up with ortho and PCP. 3. Please finish course of steroids. 4. Please take medications as prescribed. Total Time Total Time Spent Total Time Spent (In Minutes): I spent a total of 35 minutes in direct patient care, including [id number] time with the patient and/or family, reviewing medical records, ordering and reviewing diagnostic tests, and coordinating care with other healthcare providers. This time includes: history taking, physical examination, medical decision making, counseling, ECG interpretation, imaging interpretation, lab interpretation, orders, and education, excluding time spent in the performance of separately billed services.
[2025-03-27] MEDS: dexAMETHasone 4 MG in SYRINGE 0 ML IV ONE (12:40)
== END 2025-03-27 12:50 | disposition home or self-care (01) | DRG 552 ==
LOC: ED 16:39 → EDINP 03-26 06:01 → INTOOBSV 03-26 06:01 → 3E 03-26 10:20